=== PATIENT | male | born 1955 | race Asian ===

== ENCOUNTER 2019-03-05 11:37 | Emergency (ER) | payer MEDICAID ==
[~2019-03-05] VITALS: Ht 160 cm; Wt 70.9 kg
[2019-03-05 11:45] VITALS: BP 197/97
--- NOTE | 2019-03-05 11:47 | NUR ---
TRIAGE COMPLETE. VSS. RETURNED TO LOBBY TO WAIT FOR BED IN ED.
--- NOTE | 2019-03-05 13:20 | NUR ---
PT TAKEN TO BED 1 WITH STEADY GAIT.
--- NOTE | 2019-03-05 13:23 | NUR ---
PT C/O COUGHING UP SCANT AMOUNTS OF BLOOD X 1 DAY. REPORTS HAVING COUGH FOR 1 WEEK. DENIES NIGHT SWEATS, FATIGUE, CHILLS, OR FEVER. PATIENT STATES PAIN OF 0/10 AT THIS TIME; VSS; PATIENT POSITIONED FOR COMFORT; HOB ELEVATED; BEDRAILS UP X1; BED DOWN. ER MD MADE AWARE OF PT STATUS.
[2019-03-05 15:30] LABS: BASOPHILS % (AUTO) 0.5 % (0.0-2.0); EOSINOPHILS # (AUTO) 0.3 K/uL (0-0.4); EOSINOPHILS % (AUTO) 4.2 % (0.0-4.0); HEMATOCRIT 35.8 % (36-52); HEMOGLOBIN 11.8 g/dL (12.0-18.0); LYMPHOCYTES # (AUTO) 1.9 K/uL (2.0-11.5); LYMPHOCYTES % (AUTO) 24.9 % (20.5-51.1); MEAN CORPUSCULAR HEMOGLOBIN 30 pg (27-31); MEAN CORPUSCULAR HGB CONC 33 g/dL (33-37); MEAN CORPUSCULAR VOLUME 89.8 fL (80-94); MONOCYTES # (AUTO) 0.6 K/uL (0.8-1.0); MONOCYTES % (AUTO) 7.9 % (1.7-9.3); NEUTROPHILS # (AUTO) 4.8 K/uL (1.8-7.7); NEUTROPHILS % (AUTO) 62.5 % (42.2-75.2); PLATELET COUNT (AUTO) 225 K/uL (140-450); RED BLOOD CELL COUNT(AUTO) 3.99 MIL/uL (4.20-6.10); RED CELL DISTRIBUTION WIDTH 13.3 % (11.6-13.7); WHITE BLOOD COUNT (AUTO) 7.7 K/uL (4.8-10.8)
--- NOTE | 2019-03-05 15:33 | NUR ---
PT IS RESTING IN BED WITH VSS. PT'S DAUGHTER IS AT BEDSIDE.
[2019-03-05 15:52] LABS: ANION GAP 12.8 (8-16); CARBON DIOXIDE 23.7 mmol/L (21-32); CREATININE 1.2 mg/dL (0.7-1.3); POTASSIUM 4.5 mmol/L (3.5-5.1)
[2019-03-05 15:57] LABS: ALBUMIN 3.1 g/dL (3.4-5.0); TOTAL BILIRUBIN 0.5 mg/dL (0.0-1.0)
[2019-03-05 16:53] VITALS: BP 172/81
--- NOTE | 2019-03-05 16:53 | NUR ---
Patient discharged with v/s stable. Written and verbal after care instructions given and explained. Patient alert, oriented and verbalized understanding of instructions. Ambulatory with steady gait. All questions addressed prior to discharge. ID band removed. Patient advised to follow up with PMD. Rx of Ventolin and Promethazine given. Patient educated on indication of medication including possible reaction and side effects. Opportunity to ask questions provided and answered.
== END 2019-03-05 16:53 | disposition home or self-care (01) ==
LOC: MED 11:37
DX: J20.9 Acute bronchitis, unspecified (principal); E11.9 Type 2 diabetes mellitus without complications; I10 Essential (primary) hypertension
CPT/HCPCS: 36415; 71045; 80053; 85025; 99284; Q0092

== ENCOUNTER 2019-04-03 16:36 | Emergency (ER) | payer MEDICAID ==
[~2019-04-03] VITALS: Ht 160 cm; Wt 72.6 kg
[2019-04-03 16:47] VITALS: BP 180/82
--- NOTE | 2019-04-03 16:55 | NUR ---
20G IV PLACED TO RT AC, LABS DRAWN BY RN AT THIS TIME
--- NOTE | 2019-04-03 17:03 | NUR ---
XR AT BEDSIDE
--- NOTE | 2019-04-03 17:08 | NUR ---
DR. BUNCH AT BEDSIDE.
--- NOTE | 2019-04-03 17:09 | NUR ---
63 Y/M PRESENTS TO ED FOR EPIGASTRIC PAIN X 3 DAYS. PT C/O "BURPING ACID, LIGHT HEADED, VOMITING." PT ALSO REPORTS FATIGUE AND DIZZINESS. A&O X 4, LUNGS CLEAR, CAP REFILL <2 SEC, ABD SOFT, BS ACTIVE IN ALL 4 QUADRANTS. R FOOT EDEMA 1+ NOTED. DENIES SOB. HX-DM, HTN, TRIPLE BIPASS, STENT, CHF NKDA
[2019-04-03 17:16] LABS: BASOPHILS % (AUTO) 0.4 % (0.0-2.0); EOSINOPHILS # (AUTO) 0.1 K/uL (0-0.4); HEMATOCRIT 33.4 % (36-52); HEMOGLOBIN 11.8 g/dL (12.0-18.0); LYMPHOCYTES % (AUTO) 17.9 % (20.5-51.1); MEAN CORPUSCULAR HEMOGLOBIN 29 pg (27-31); MEAN CORPUSCULAR HGB CONC 35 g/dL (33-37); MEAN CORPUSCULAR VOLUME 82.4 fL (80-94); MONOCYTES # (AUTO) 0.8 K/uL (0.8-1.0); MONOCYTES % (AUTO) 14.6 % (1.7-9.3); NEUTROPHILS # (AUTO) 3.6 K/uL (1.8-7.7); NEUTROPHILS % (AUTO) 65.1 % (42.2-75.2); PLATELET COUNT (AUTO) 258 K/uL (140-450); RED BLOOD CELL COUNT(AUTO) 4.06 MIL/uL (4.20-6.10); RED CELL DISTRIBUTION WIDTH 12.9 % (11.6-13.7); WHITE BLOOD COUNT (AUTO) 5.5 K/uL (4.8-10.8)
[2019-04-03 17:33] LABS: ALBUMIN 2.9 g/dL (3.4-5.0); ANION GAP 11.4 (8-16); CREATININE 1.1 mg/dL (0.6-1.3); POTASSIUM 4.4 mmol/L (3.5-5.1); TOTAL BILIRUBIN 0.5 mg/dL (0.0-1.0)
--- NOTE | 2019-04-03 17:39 | NUR ---
SODIUM 119 DR BUNCH NOTIFIED
[2019-04-03] MEDS ORDERED: NACL 0.9% 1,000 ML IV ONE (17:40)
--- NOTE | 2019-04-03 17:46 | NUR ---
TROPONIN [address] BUNCH
[2019-04-03] MEDS ORDERED: CLOP75TA26 PO (17:52)
[2019-04-03] MEDS ORDERED: ATOR10TA PO (17:53)
[2019-04-03] MEDS ORDERED: CARV12.5 PO (17:53)
--- NOTE | 2019-04-03 18:40 | NUR ---
PTS VITALS STABLE, PT RESTING IN BED, RR EVEN AND UNLABORED, NO DISTRESS NOTED, DENIES PAIN, DAUGTHER AT BEDSIDE. ACCUCHECK DONE AT BEDSIDE 126.
--- NOTE | 2019-04-03 18:40 | NUR ---
ACCUCHECK 126
--- NOTE | 2019-04-03 18:56 | NUR ---
REPORT CALLED TO [facility]. REPORT GIVEN TO KIMBERLY AMAYA. STATES PT WILL GO TO BED 206B, MUST STOP BY ADMITTING UPON ARRIVAL
--- NOTE | 2019-04-03 19:48 | NUR ---
Spoke to Dr Hernandez on the phone. He states the patient is stable for BLS transport at this time.
--- NOTE | 2019-04-03 19:55 | NUR ---
Report given to [facility] tx team. Patient stable at time of transfer of care.
[2019-04-03 19:56] VITALS: BP 123/73
== END 2019-04-03 19:56 | disposition short-term general hospital (02) ==
LOC: MED 16:36
DX: E87.1 Hypo-osmolality and hyponatremia (principal); R10.13 Epigastric pain; R79.89 Other specified abnormal findings of blood chemistry; I11.0 Hypertensive heart disease with heart failure; E11.9 Type 2 diabetes mellitus without complications; Z98.890 Other specified postprocedural states
CPT/HCPCS: 36415; 71045; 80053; 81002; 83690; 84484; 85025; 93005; 96360; 99285; J7030; Q0092